=== PATIENT | female | born 1955 | race Caucasian/White ===

== ENCOUNTER 2021-01-20 17:59 | Emergency (ER) | payer MEDICARE, OTHER ==
[~2021-01-20] VITALS: Ht 162.6 cm; Wt 79.4 kg
[2021-01-20 18:03] VITALS: BP 109/70
--- NOTE | 2021-01-20 18:39 | NUR ---
BREAK RN: CHANO DOLL IN ROOM. NO ACUTE DISTRESS NOTED. AT BEDSIDE. CALL LIGHT IN PLACE. WILL CONTINUE TO MONITOR WHILE PRIMARY RN IS ON BREAK.
--- NOTE | 2021-01-20 18:52 | NUR ---
break RN: report given to FAROOQ Sy
[2021-01-20] MEDS ORDERED: ONDANSETRON ODT 4 MG ONE (19:58)
[2021-01-20] MEDS ORDERED: HYDROcodone/APAP 5/325 TABLET ONE (19:59)
[2021-01-20] MEDS ORDERED: ONDANSETRON ODT 4 MG PO ONE (20:00)
[2021-01-20] MEDS ORDERED: HYDROcodone/APAP 5/325 TABLET PO ONE (20:00)
--- NOTE | 2021-01-20 20:09 | NUR ---
PT PROVIDED INCENTIVE SPIROMETER AND EDUCATED ON ITS USE
== END 2021-01-20 20:11 | disposition home or self-care (01) ==
LOC: ED 20:00
DX: S20.211A Contusion of right front wall of thorax, initial encounter (principal); W01.0XXA Fall on same level from slipping, tripping and stumbling without subsequent striking against object, initial encounter; Y93.89 Activity, other specified; Y92.009 Unspecified place in unspecified non-institutional (private) residence as the place of occurrence of the external cause; Y99.8 Other external cause status
CPT/HCPCS: 71046; 99283; Q0162